=== PATIENT | male | born 1950 | race African-American/Black ===

== ENCOUNTER 2018-05-24 15:30 | Inpatient (IN) | payer MEDICARE, OTHER ==
[~2018-05-24] VITALS: Ht 180.3 cm; Wt 84.4 kg
[2018-05-24 16:25] VITALS: BP 146/78
[2018-05-24] MEDS ORDERED: ONDANSETRON HCL 4MG TABLET PO PRN (17:00)
[2018-05-24] MEDS ORDERED: NA PHOS,M-B/NA PHOS,DI-BA ENEMA 118ML PR PRN (17:00)
[2018-05-24] MEDS ORDERED: DEXTROSE 50% WATER 50ML SYRINGE IV PRN (18:00)
[2018-05-24] MEDS: DOCUSATE SODIUM 100MG CAPSULE PO SCH (18:05)
[2018-05-24] MEDS: LOSARTAN POTASSIUM 50 MG TABLET PO SCH (18:05)
[2018-05-24 20:00] VITALS: BP 140/82
[2018-05-24] MEDS ORDERED: LACTULOSE 20G/30ML UDC PO NR (20:00)
[2018-05-24] MEDS: INSULIN LISPRO 100 UNITS/ML SUBCUT SCH (21:00)
[2018-05-24] MEDS: ATORVASTATIN CALCIUM 40MG TABLET PO SCH (21:00)
[2018-05-24] MEDS: ENOXAPARIN 40MG/0.4ML SYR SUBCUT SCH (21:00)
[2018-05-24] MEDS: BLOOD SUGAR DIAGNOSTIC STRIP TEST SCH (21:00)
[2018-05-24 21:04] LABS: BASOPHILS % 0.6 % (0.0-2.0); HEMOGLOBIN. 17.6 g/dL (14.0-18.0); LYMPHOCYTES % 23.1 % (20.0-50.0); MEAN CORPUSCULAR VOLUME 88.5 fL (80.0-94.0); MEAN PLATELET VOLUME 10.5 fl (7.4-10.4); NEUTROPHILS % 69.3 % (40.0-76.0); PLATELET 284 x1000/uL (130-400); RED BLOOD CELL COUNT 5.87 mill/uL (4.7-6.1)
[2018-05-24 21:14] LABS: CHLORIDE 106 mEq/L (98-107)
[2018-05-24 21:20] LABS: LDL CHOLESTEROL 183 mg/dL (5-100)
[2018-05-24 21:22] LABS: HDL CHOLESTEROL 24 mg/dL (40-59)
[2018-05-25] MEDS: BLOOD SUGAR DIAGNOSTIC STRIP TEST SCH ×4 (07:14→20:41)
[2018-05-25 08:00] VITALS: BP 114/67
[2018-05-25] MEDS: INSULIN LISPRO 100 UNITS/ML SUBCUT SCH ×4 (09:00→20:41)
[2018-05-25] MEDS: POLYETHYLENE GLYCOL 3350 (17GM) 1 DOSE PACK PO SCH (09:07)
[2018-05-25] MEDS: ASPIRIN 81MG TABLET PO SCH (09:08)
[2018-05-25] MEDS: LOSARTAN POTASSIUM 50 MG TABLET PO SCH ×2 (09:08→16:47)
[2018-05-25] MEDS: DOCUSATE SODIUM 100MG CAPSULE PO SCH ×2 (09:08→16:47)
[2018-05-25] MEDS: NIFEDIPINE XL 90MG TAB PO SCH (10:38)
[2018-05-25 13:11] LABS: BASOPHILS % 0.8 % (0.0-2.0); EOSINOPHILS % 0.7 % (0.0-5.0); HEMATOCRIT. 49.5 % (42.0-52.0); HEMOGLOBIN. 16.9 g/dL (14.0-18.0); LYMPHOCYTES % 21.8 % (20.0-50.0); MEAN CORPUSCULAR VOLUME 88.1 fL (80.0-94.0); MEAN PLATELET VOLUME 9.7 fl (7.4-10.4); MONOCYTES % 6.5 % (2.0-8.0); NEUTROPHILS % 70.2 % (40.0-76.0); PLATELET 250 x1000/uL (130-400); RED BLOOD CELL COUNT 5.62 mill/uL (4.7-6.1); RED CELL DISTRIBUTION WIDTH 12.8 % (11.6-14.6)
[2018-05-25 13:29] LABS: CHLORIDE 104 mEq/L (98-107)
[2018-05-25 20:00] VITALS: BP 126/80
[2018-05-25] MEDS: ENOXAPARIN 40MG/0.4ML SYR SUBCUT SCH (20:40)
[2018-05-25] MEDS: ATORVASTATIN CALCIUM 40MG TABLET PO SCH (20:40)
[2018-05-26] MEDS: IBUPROFEN 600MG TABLET PO PRN (04:36)
[2018-05-26] MEDS: BLOOD SUGAR DIAGNOSTIC STRIP TEST SCH ×4 (06:09→21:42)
[2018-05-26] MEDS: INSULIN LISPRO 100 UNITS/ML SUBCUT SCH ×4 (06:09→21:00)
[2018-05-26 07:25] LABS: BASOPHILS % 0.5 % (0.0-2.0); EOSINOPHILS % 1.8 % (0.0-5.0); HEMATOCRIT. 47.6 % (42.0-52.0); LYMPHOCYTES % 24.3 % (20.0-50.0); MEAN CORPUSCULAR HEMOGLOBIN 29.7 pg (28.0-32.0); MEAN CORPUSCULAR VOLUME 88.2 fL (80.0-94.0); MEAN PLATELET VOLUME 10.2 fl (7.4-10.4); MONOCYTES % 9.1 % (2.0-8.0); NEUTROPHILS % 64.3 % (40.0-76.0); PLATELET 247 x1000/uL (130-400); RED CELL DISTRIBUTION WIDTH 12.6 % (11.6-14.6)
[2018-05-26 07:34] LABS: CHLORIDE 102 mEq/L (98-107)
[2018-05-26 08:02] VITALS: BP 111/67
[2018-05-26] MEDS: NIFEDIPINE XL 90MG TAB PO SCH (09:03)
[2018-05-26] MEDS: LOSARTAN POTASSIUM 50 MG TABLET PO SCH ×2 (09:03→17:11)
[2018-05-26] MEDS: ASPIRIN 81MG TABLET PO SCH (09:03)
[2018-05-26] MEDS: DOCUSATE SODIUM 100MG CAPSULE PO SCH ×2 (09:03→17:11)
[2018-05-26] MEDS: POLYETHYLENE GLYCOL 3350 (17GM) 1 DOSE PACK PO SCH (09:04)
[2018-05-26 16:00] VITALS: BP 133/77
[2018-05-26] MEDS: LACTULOSE 20G/30ML UDC PO PRN (17:57)
[2018-05-26 20:00] VITALS: BP 125/77
[2018-05-26] MEDS: ATORVASTATIN CALCIUM 40MG TABLET PO SCH (21:41)
[2018-05-26] MEDS: ENOXAPARIN 40MG/0.4ML SYR SUBCUT SCH (21:42)
[2018-05-27] MEDS: BLOOD SUGAR DIAGNOSTIC STRIP TEST SCH ×4 (06:45→20:54)
[2018-05-27 08:00] VITALS: BP 121/73
[2018-05-27] MEDS: INSULIN LISPRO 100 UNITS/ML SUBCUT SCH ×4 (09:00→20:58)
[2018-05-27] MEDS: DOCUSATE SODIUM 100MG CAPSULE PO SCH ×2 (10:21→17:23)
[2018-05-27] MEDS: LOSARTAN POTASSIUM 50 MG TABLET PO SCH ×2 (10:21→17:23)
[2018-05-27] MEDS: NIFEDIPINE XL 90MG TAB PO SCH (10:21)
[2018-05-27] MEDS: ASPIRIN 81MG TABLET PO SCH (10:22)
[2018-05-27] MEDS: POLYETHYLENE GLYCOL 3350 (17GM) 1 DOSE PACK PO SCH (10:28)
[2018-05-27] MEDS: LACTULOSE 20G/30ML UDC PO PRN (19:00)
[2018-05-27 20:00] VITALS: BP 131/75
[2018-05-27] MEDS: ATORVASTATIN CALCIUM 40MG TABLET PO SCH (20:54)
[2018-05-27] MEDS: ENOXAPARIN 40MG/0.4ML SYR SUBCUT SCH (20:54)
[2018-05-28] MEDS: BLOOD SUGAR DIAGNOSTIC STRIP TEST SCH ×4 (06:08→21:07)
[2018-05-28 07:53] LABS: BASOPHILS % 0.7 % (0.0-2.0); EOSINOPHILS % 1.4 % (0.0-5.0); HEMATOCRIT. 47.1 % (42.0-52.0); HEMOGLOBIN. 16.1 g/dL (14.0-18.0); LYMPHOCYTES % 29.2 % (20.0-50.0); MEAN CORPUSCULAR VOLUME 87.9 fL (80.0-94.0); MEAN PLATELET VOLUME 10.4 fl (7.4-10.4); NEUTROPHILS % 59.7 % (40.0-76.0); PLATELET 256 x1000/uL (130-400); RED BLOOD CELL COUNT 5.36 mill/uL (4.7-6.1); RED CELL DISTRIBUTION WIDTH 12.9 % (11.6-14.6)
[2018-05-28 08:00] VITALS: BP 120/73
[2018-05-28 08:11] LABS: CHLORIDE 104 mEq/L (98-107)
[2018-05-28] MEDS: NIFEDIPINE XL 90MG TAB PO SCH (08:42)
[2018-05-28] MEDS: LOSARTAN POTASSIUM 50 MG TABLET PO SCH ×2 (08:42→17:36)
[2018-05-28] MEDS: ASPIRIN 81MG TABLET PO SCH (08:45)
[2018-05-28] MEDS: DOCUSATE SODIUM 100MG CAPSULE PO SCH ×2 (08:45→17:36)
[2018-05-28] MEDS: POLYETHYLENE GLYCOL 3350 (17GM) 1 DOSE PACK PO SCH (08:46)
[2018-05-28] MEDS: INSULIN LISPRO 100 UNITS/ML SUBCUT SCH ×4 (09:00→21:00)
[2018-05-28 20:00] VITALS: BP 110/60
[2018-05-28] MEDS: ATORVASTATIN CALCIUM 40MG TABLET PO SCH (21:06)
[2018-05-28] MEDS: ENOXAPARIN 40MG/0.4ML SYR SUBCUT SCH (21:07)
[2018-05-29] MEDS: BLOOD SUGAR DIAGNOSTIC STRIP TEST SCH ×4 (05:57→21:47)
[2018-05-29] MEDS: INSULIN LISPRO 100 UNITS/ML SUBCUT SCH ×4 (05:57→21:00)
[2018-05-29 06:09] VITALS: BP_SYST 118; BP_SYST 124; BP_DIAS 72; BP_DIAS 77; BP_DIAS 79
[2018-05-29 08:00] VITALS: BP_SYST 116; BP_SYST 124; BP_SYST 148; BP_DIAS 68; BP_DIAS 75; BP_DIAS 82
[2018-05-29] MEDS: DOCUSATE SODIUM 100MG CAPSULE PO SCH ×2 (10:04→17:33)
[2018-05-29] MEDS: ASPIRIN 81MG TABLET PO SCH (10:05)
[2018-05-29] MEDS: POLYETHYLENE GLYCOL 3350 (17GM) 1 DOSE PACK PO SCH (10:05)
[2018-05-29] MEDS: NIFEDIPINE XL 90MG TAB PO SCH (10:05)
[2018-05-29] MEDS: LOSARTAN POTASSIUM 50 MG TABLET PO SCH ×2 (10:05→17:33)
[2018-05-29] MEDS: EZETIMIBE 10MG TABLET PO SCH (15:27)
[2018-05-29 20:00] VITALS: BP 120/66
[2018-05-29] MEDS: ENOXAPARIN 40MG/0.4ML SYR SUBCUT SCH (21:47)
[2018-05-29] MEDS: ATORVASTATIN CALCIUM 40MG TABLET PO SCH (21:50)
[2018-05-30] MEDS: ACETAMINOPHEN 325MG TABLET PO PRN (04:24)
[2018-05-30] MEDS: INSULIN LISPRO 100 UNITS/ML SUBCUT SCH ×4 (07:13→20:30)
[2018-05-30] MEDS: BLOOD SUGAR DIAGNOSTIC STRIP TEST SCH ×4 (07:13→20:14)
[2018-05-30 07:20] LABS: BASOPHILS % 0.5 % (0.0-2.0); EOSINOPHILS % 1.1 % (0.0-5.0); HEMATOCRIT. 44.7 % (42.0-52.0); HEMOGLOBIN. 15.3 g/dL (14.0-18.0); LYMPHOCYTES % 25.6 % (20.0-50.0); MEAN CORPUSCULAR HEMOGLOBIN 29.9 pg (28.0-32.0); MEAN CORPUSCULAR VOLUME 87.2 fL (80.0-94.0); MEAN PLATELET VOLUME 10.4 fl (7.4-10.4); MONOCYTES % 7.4 % (2.0-8.0); NEUTROPHILS % 65.4 % (40.0-76.0); PLATELET 254 x1000/uL (130-400); RED BLOOD CELL COUNT 5.13 mill/uL (4.7-6.1); RED CELL DISTRIBUTION WIDTH 12.6 % (11.6-14.6)
[2018-05-30 07:39] LABS: CHLORIDE 104 mEq/L (98-107)
[2018-05-30 08:33] VITALS: BP 133/72
[2018-05-30] MEDS: LOSARTAN POTASSIUM 50 MG TABLET PO SCH ×2 (09:24→16:38)
[2018-05-30] MEDS: ASPIRIN 81MG TABLET PO SCH (09:24)
[2018-05-30] MEDS: NIFEDIPINE XL 90MG TAB PO SCH (09:24)
[2018-05-30] MEDS: EZETIMIBE 10MG TABLET PO SCH (09:25)
[2018-05-30] MEDS: POLYETHYLENE GLYCOL 3350 (17GM) 1 DOSE PACK PO SCH (09:25)
[2018-05-30] MEDS: DOCUSATE SODIUM 100MG CAPSULE PO SCH ×2 (09:25→16:38)
[2018-05-30] MEDS: IBUPROFEN 600MG TABLET PO PRN (13:46)
[2018-05-30 20:00] VITALS: BP 127/68
[2018-05-30] MEDS: ATORVASTATIN CALCIUM 40MG TABLET PO SCH (20:14)
[2018-05-30] MEDS: ENOXAPARIN 40MG/0.4ML SYR SUBCUT SCH (20:14)
[2018-05-31] MEDS: ACETAMINOPHEN 325MG TABLET PO PRN ×2 (06:02→22:06)
[2018-05-31] MEDS: BLOOD SUGAR DIAGNOSTIC STRIP TEST SCH ×4 (06:04→21:00)
[2018-05-31] MEDS: INSULIN LISPRO 100 UNITS/ML SUBCUT SCH ×4 (06:04→21:00)
[2018-05-31 08:35] VITALS: BP 126/77
[2018-05-31] MEDS: POLYETHYLENE GLYCOL 3350 (17GM) 1 DOSE PACK PO SCH (08:49)
[2018-05-31] MEDS: EZETIMIBE 10MG TABLET PO SCH (08:49)
[2018-05-31] MEDS: DOCUSATE SODIUM 100MG CAPSULE PO SCH ×2 (08:49→17:40)
[2018-05-31] MEDS: ASPIRIN 81MG TABLET PO SCH (08:49)
[2018-05-31] MEDS: LOSARTAN POTASSIUM 50 MG TABLET PO SCH ×2 (08:49→17:40)
[2018-05-31] MEDS: NIFEDIPINE XL 90MG TAB PO SCH (08:50)
[2018-05-31] MEDS: IBUPROFEN 600MG TABLET PO PRN (17:40)
[2018-05-31 20:00] VITALS: BP 142/75
[2018-05-31] MEDS: ATORVASTATIN CALCIUM 40MG TABLET PO SCH (22:05)
[2018-05-31] MEDS: ENOXAPARIN 40MG/0.4ML SYR SUBCUT SCH (22:06)
[2018-06-01] MEDS: INSULIN LISPRO 100 UNITS/ML SUBCUT SCH ×4 (05:39→20:14)
[2018-06-01] MEDS: BLOOD SUGAR DIAGNOSTIC STRIP TEST SCH ×4 (05:39→20:15)
[2018-06-01] MEDS: IBUPROFEN 600MG TABLET PO PRN ×2 (05:39→17:31)
[2018-06-01 08:00] VITALS: BP 131/76
[2018-06-01] MEDS: POLYETHYLENE GLYCOL 3350 (17GM) 1 DOSE PACK PO SCH (09:00)
[2018-06-01] MEDS: EZETIMIBE 10MG TABLET PO SCH (09:28)
[2018-06-01] MEDS: LOSARTAN POTASSIUM 50 MG TABLET PO SCH ×2 (09:28→17:28)
[2018-06-01] MEDS: ASPIRIN 81MG TABLET PO SCH (09:28)
[2018-06-01] MEDS: DOCUSATE SODIUM 100MG CAPSULE PO SCH ×2 (09:28→17:28)
[2018-06-01] MEDS: NIFEDIPINE XL 90MG TAB PO SCH (09:29)
[2018-06-01 20:00] VITALS: BP 143/80
[2018-06-01] MEDS: ATORVASTATIN CALCIUM 40MG TABLET PO SCH (20:14)
[2018-06-01] MEDS: ENOXAPARIN 40MG/0.4ML SYR SUBCUT SCH (20:15)
[2018-06-02] MEDS: BLOOD SUGAR DIAGNOSTIC STRIP TEST SCH ×4 (05:37→21:48)
[2018-06-02] MEDS: INSULIN LISPRO 100 UNITS/ML SUBCUT SCH ×4 (05:38→21:00)
[2018-06-02 07:56] VITALS: BP 120/71
[2018-06-02] MEDS: POLYETHYLENE GLYCOL 3350 (17GM) 1 DOSE PACK PO SCH (08:48)
[2018-06-02] MEDS: IBUPROFEN 600MG TABLET PO PRN ×2 (08:49→18:38)
[2018-06-02] MEDS: EZETIMIBE 10MG TABLET PO SCH (08:49)
[2018-06-02] MEDS: NIFEDIPINE XL 90MG TAB PO SCH (08:49)
[2018-06-02] MEDS: DOCUSATE SODIUM 100MG CAPSULE PO SCH ×2 (08:49→17:19)
[2018-06-02] MEDS: ASPIRIN 81MG TABLET PO SCH (08:49)
[2018-06-02] MEDS: LOSARTAN POTASSIUM 50 MG TABLET PO SCH ×2 (08:49→17:19)
[2018-06-02 20:00] VITALS: BP 136/79
[2018-06-02] MEDS: ENOXAPARIN 40MG/0.4ML SYR SUBCUT SCH (21:49)
[2018-06-02] MEDS: ATORVASTATIN CALCIUM 40MG TABLET PO SCH (21:49)
[2018-06-03] MEDS: BLOOD SUGAR DIAGNOSTIC STRIP TEST SCH ×4 (06:43→21:00)
[2018-06-03] MEDS: INSULIN LISPRO 100 UNITS/ML SUBCUT SCH ×4 (06:43→21:00)
[2018-06-03 08:26] VITALS: BP 129/79
[2018-06-03] MEDS: ASPIRIN 81MG TABLET PO SCH (08:50)
[2018-06-03] MEDS: EZETIMIBE 10MG TABLET PO SCH (08:50)
[2018-06-03] MEDS: NIFEDIPINE XL 90MG TAB PO SCH (08:51)
[2018-06-03] MEDS: LOSARTAN POTASSIUM 50 MG TABLET PO SCH ×2 (08:51→17:30)
[2018-06-03] MEDS: DOCUSATE SODIUM 100MG CAPSULE PO SCH ×2 (08:58→16:24)
[2018-06-03] MEDS: POLYETHYLENE GLYCOL 3350 (17GM) 1 DOSE PACK PO SCH (08:58)
[2018-06-03] MEDS: IBUPROFEN 600MG TABLET PO PRN (10:04)
[2018-06-03] MEDS: HYDROCODONE/ACETAMINOPHEN 5/325MG TABLET PO PRN ×2 (13:31→17:31)
[2018-06-03 20:00] VITALS: BP 139/74
[2018-06-03] MEDS: ATORVASTATIN CALCIUM 40MG TABLET PO SCH (22:03)
[2018-06-03] MEDS: ENOXAPARIN 40MG/0.4ML SYR SUBCUT SCH (22:04)
[2018-06-04] MEDS: HYDROCODONE/ACETAMINOPHEN 5/325MG TABLET PO PRN ×4 (02:54→22:28)
[2018-06-04] MEDS: BLOOD SUGAR DIAGNOSTIC STRIP TEST SCH ×4 (06:08→21:00)
[2018-06-04] MEDS: INSULIN LISPRO 100 UNITS/ML SUBCUT SCH ×4 (06:09→21:00)
[2018-06-04 08:00] VITALS: BP 116/68
[2018-06-04] MEDS: NIFEDIPINE XL 90MG TAB PO SCH (08:23)
[2018-06-04] MEDS: DOCUSATE SODIUM 100MG CAPSULE PO SCH ×2 (08:23→17:25)
[2018-06-04] MEDS: POLYETHYLENE GLYCOL 3350 (17GM) 1 DOSE PACK PO SCH (08:24)
[2018-06-04] MEDS: ASPIRIN 81MG TABLET PO SCH (08:24)
[2018-06-04] MEDS: EZETIMIBE 10MG TABLET PO SCH (08:24)
[2018-06-04] MEDS: LOSARTAN POTASSIUM 50 MG TABLET PO SCH ×2 (08:24→17:37)
[2018-06-04] MEDS: LIDOCAINE 5% PATCH TOP SCH ×2 (17:27→18:06)
[2018-06-04 20:00] VITALS: BP 131/74
[2018-06-04] MEDS: ATORVASTATIN CALCIUM 40MG TABLET PO SCH (22:27)
[2018-06-04] MEDS: ENOXAPARIN 40MG/0.4ML SYR SUBCUT SCH (22:38)
[2018-06-05] MEDS: BLOOD SUGAR DIAGNOSTIC STRIP TEST SCH ×4 (06:30→21:00)
[2018-06-05] MEDS: INSULIN LISPRO 100 UNITS/ML SUBCUT SCH ×4 (07:56→21:00)
[2018-06-05 08:00] VITALS: BP_SYST 112; BP_SYST 116; BP_SYST 128; BP_DIAS 62; BP_DIAS 64; BP_DIAS 76
[2018-06-05 08:18] VITALS: BP 123/75
[2018-06-05] MEDS: NIFEDIPINE XL 90MG TAB PO SCH (09:08)
[2018-06-05] MEDS: POLYETHYLENE GLYCOL 3350 (17GM) 1 DOSE PACK PO SCH (09:08)
[2018-06-05] MEDS: HYDROCODONE/ACETAMINOPHEN 5/325MG TABLET PO PRN ×2 (09:08→21:22)
[2018-06-05] MEDS: LOSARTAN POTASSIUM 50 MG TABLET PO SCH ×2 (09:08→17:59)
[2018-06-05] MEDS: EZETIMIBE 10MG TABLET PO SCH (09:08)
[2018-06-05] MEDS: ASPIRIN 81MG TABLET PO SCH (09:08)
[2018-06-05] MEDS: DOCUSATE SODIUM 100MG CAPSULE PO SCH ×2 (09:08→18:00)
[2018-06-05] MEDS: LIDOCAINE 5% PATCH TOP SCH (18:00)
[2018-06-05 20:00] VITALS: BP 116/62
[2018-06-05] MEDS: ATORVASTATIN CALCIUM 40MG TABLET PO SCH (21:12)
[2018-06-05] MEDS: ENOXAPARIN 40MG/0.4ML SYR SUBCUT SCH (21:13)
[2018-06-06] MEDS: LACTULOSE 20G/30ML UDC PO PRN (06:21)
[2018-06-06] MEDS: INSULIN LISPRO 100 UNITS/ML SUBCUT SCH ×4 (06:21→20:21)
[2018-06-06] MEDS: BLOOD SUGAR DIAGNOSTIC STRIP TEST SCH ×4 (06:21→20:21)
[2018-06-06 07:40] LABS: CHLORIDE 105 mEq/L (98-107)
[2018-06-06 07:45] LABS: BASOPHILS % 0.6 % (0.0-2.0); EOSINOPHILS % 1.7 % (0.0-5.0); HEMATOCRIT. 44.1 % (42.0-52.0); HEMOGLOBIN. 14.7 g/dL (14.0-18.0); LYMPHOCYTES % 28.4 % (20.0-50.0); MEAN CORPUSCULAR HEMOGLOBIN 29.5 pg (28.0-32.0); MEAN CORPUSCULAR VOLUME 88.3 fL (80.0-94.0); MEAN PLATELET VOLUME 10.9 fl (7.4-10.4); MONOCYTES % 7.6 % (2.0-8.0); NEUTROPHILS % 61.7 % (40.0-76.0); PLATELET 241 x1000/uL (130-400); RED CELL DISTRIBUTION WIDTH 12.7 % (11.6-14.6)
[2018-06-06 07:59] VITALS: BP 115/68
[2018-06-06] MEDS: LOSARTAN POTASSIUM 50 MG TABLET PO SCH ×2 (08:19→17:21)
[2018-06-06] MEDS: EZETIMIBE 10MG TABLET PO SCH (08:19)
[2018-06-06] MEDS: DOCUSATE SODIUM 100MG CAPSULE PO SCH ×2 (08:20→17:21)
[2018-06-06] MEDS: ASPIRIN 81MG TABLET PO SCH (08:20)
[2018-06-06] MEDS: POLYETHYLENE GLYCOL 3350 (17GM) 1 DOSE PACK PO SCH (08:20)
[2018-06-06] MEDS: NIFEDIPINE XL 90MG TAB PO SCH (09:00)
[2018-06-06] MEDS ORDERED: SORBITOL 70% SOLN 30ML PO NR (09:30)
[2018-06-06 10:00] VITALS: BP_SYST 108; BP_SYST 112; BP_SYST 118; BP_DIAS 62; BP_DIAS 64; BP_DIAS 72
[2018-06-06] MEDS: IBUPROFEN 600MG TABLET PO PRN ×2 (13:54→20:29)
[2018-06-06 20:00] VITALS: BP 122/77
[2018-06-06] MEDS: ATORVASTATIN CALCIUM 40MG TABLET PO SCH (20:21)
[2018-06-06] MEDS: ENOXAPARIN 40MG/0.4ML SYR SUBCUT SCH (20:21)
[2018-06-06] MEDS ORDERED: LIDOCAINE 5% PATCH TOP NR (21:15)
[2018-06-07] MEDS: BLOOD SUGAR DIAGNOSTIC STRIP TEST SCH ×2 (05:54→11:27)
[2018-06-07] MEDS: INSULIN LISPRO 100 UNITS/ML SUBCUT SCH ×2 (05:54→11:55)
[2018-06-07 08:00] VITALS: BP 123/73
[2018-06-07] MEDS: EZETIMIBE 10MG TABLET PO SCH (08:53)
[2018-06-07] MEDS: LOSARTAN POTASSIUM 50 MG TABLET PO SCH (08:53)
[2018-06-07] MEDS: ASPIRIN 81MG TABLET PO SCH (08:53)
[2018-06-07] MEDS: NIFEDIPINE XL 90MG TAB PO SCH (08:53)
[2018-06-07] MEDS: DOCUSATE SODIUM 100MG CAPSULE PO SCH (08:53)
[2018-06-07] MEDS: POLYETHYLENE GLYCOL 3350 (17GM) 1 DOSE PACK PO SCH (08:57)
[2018-06-07 12:11] VITALS: BP 123/73
[2018-06-07] MEDS ORDERED: ATORVASTATIN CALCIUM 20MG TABLET PO SCH (21:00)
== END 2018-06-07 17:15 | disposition home health service (06) | DRG 65 ==
PROVIDERS: ADMIT Psychiatry & Neurology Neurology; ATTEND Internal Medicine Geriatric Medicine
DX: I63.9 Cerebral infarction, unspecified (principal); E44.0 Moderate protein-calorie malnutrition; E66.9 Obesity, unspecified; E78.00 Pure hypercholesterolemia, unspecified; E78.5 Hyperlipidemia, unspecified; I10 Essential (primary) hypertension; K59.00 Constipation, unspecified; R49.0 Dysphonia; R26.9 Unspecified abnormalities of gait and mobility; R27.8 Other lack of coordination; R47.1 Dysarthria and anarthria; M46.82 Other specified inflammatory spondylopathies, cervical region; G90.8 Other disorders of autonomic nervous system; M19.90 Unspecified osteoarthritis, unspecified site; M48.02 Spinal stenosis, cervical region; F06.31 Mood disorder due to known physiological condition with depressive features; F01.50 Vascular dementia, unspecified severity, without behavioral disturbance, psychotic disturbance, mood disturbance, and anxiety; M47.812 Spondylosis without myelopathy or radiculopathy, cervical region; M50.322 Other cervical disc degeneration at C5-C6 level; M50.323 Other cervical disc degeneration at C6-C7 level; Z68.25 Body mass index [BMI] 25.0-25.9, adult
CPT/HCPCS: 36415; 72040; 80048; 80061; 82962; 83036; 92523; 92610; 93970; 97110; 97112; 97116; 97127; 97163; 97167; 97530; 97535; J1650